=== PATIENT | male | born 1985 | race African-American/Black ===

== ENCOUNTER 2018-11-20 08:28 | Emergency (ER) | payer SELFPAY ==
[~2018-11-20] VITALS: Ht 172.7 cm; Wt 64.0 kg
[2018-11-20 08:40] VITALS: BP 162/96; PULSE 102; RESP 20; Ht 172.7 cm; Wt 64.0 kg
[2018-11-20] MEDS ORDERED: OLAN5TAB5 PO (23:12)
== END 2018-11-20 10:54 | disposition left against medical advice (07) ==
LOC: E/R 08:28
DX: Z53.21 Procedure and treatment not carried out due to patient leaving prior to being seen by health care provider (principal)

== ENCOUNTER 2018-11-20 11:39 | Emergency (ER) | payer MEDICAID ==
[~2018-11-20] VITALS: Ht 167.6 cm; Wt 75.0 kg
[2018-11-20 11:44] VITALS: Ht 167.6 cm; Wt 75.0 kg
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
[2018-11-20] MEDS ORDERED: OLANZAPINE 5 MG TAB PO ONE (16:30)
[2018-11-20] MEDS: OLANZAPINE 5 MG TAB PO SCH (22:38)
[2018-11-20] MEDS ORDERED: OLAN5TAB5 PO (23:12)
[2018-11-21] MEDS: OLANZAPINE 5 MG TAB PO SCH (08:52)
[2018-11-21 14:11] VITALS: BP 101/70; PULSE 76; RESP 16
== END 2018-11-21 14:13 ==
LOC: E/R 11:39
DX: F29 Unspecified psychosis not due to a substance or known physiological condition (principal); F22 Delusional disorders; F64.9 Gender identity disorder, unspecified; D64.9 Anemia, unspecified; R74.0 Nonspecific elevation of levels of transaminase and lactic acid dehydrogenase [LDH]; R79.89 Other specified abnormal findings of blood chemistry
CPT/HCPCS: 80053; 80307; 81003; 85025; Z7502; Z7610; 99283